=== PATIENT | male | born 1980 | race Asian ===

== ENCOUNTER 2022-06-18 08:22 | Outpatient (CLI) | payer BC, SELFPAY ==
--- NOTE | ~2022-06-18 | XR_ITS ---
EXAMINATION: XR chest 2V 06/18/2022 09:15 INDICATION: 20 year tobacco use history. Cough. Shortness of breath. PROCEDURE: Two-view chest COMPARISON: No prior studies for comparison. FINDINGS: The lungs are clear. The cardiomediastinal silhouette is within normal limits. There are no pleural effusions. There is no pneumothorax suspected. IMPRESSION: 1: NO ACUTE CARDIOPULMONARY DISEASE. Reviewed, dictated and finalized at location D. [employer]OPER
[2022-06-18 09:17] LABS: Hematocrit 48.3 % (42.0-52.0); Mean Corpuscular HGB Conc 33.1 g/dl (32-36); Mean Corpuscular Hemoglobin 31.8 pg (26-34); Mean Platelet Volume 8.4 fl (7.4-10.4); Platelet Count Result 234 k/mm3 (150-375); Red Blood Count 5.03 M/mm3 (4.6-6.20); Red Cell Distribution Width 12.9 % (11.5-14.5)
[2022-06-18 09:28] LABS: Alanine Aminotransferase 22 U/L (6-50); Alkaline Phosphatase 59 U/L (38-126); Anion Gap 4 mmol/L (8-16); Aspartate Amino Transferase 23 U/L (17-59); Bilirubin,Total 0.7 mg/dL (0.2-1.3); Blood Urea Nitrogen 19 mg/dL (9-20); Carbon Dioxide 30 mmol/L (22-30); Chloride 105 mmol/L (98-107); Cholesterol 209 mg/dL (0-200); Estimated Glomerular Filt Rate > 60; Glucose 138 mg/dL (65-110); HDL Direct 51 mg/dL; Phosphorus 3.6 mg/dL (2.5-4.5); Potassium 4.1 mmol/L (3.4-5.0); Sodium 139 mmol/L (137-145); Triglycerides 128 mg/dL (<150)
[2022-06-18 09:39] LABS: LDL Cholesterol Direct 127 mg/dL
[2022-06-18 10:20] LABS: Creatinine Urine 264.8 mg/dL
[2022-06-18 10:24] LABS: MALB Creatinine Ratio 5.5 mg/g (0-30); Microalbumin Urine Random 14.5 mg/L (0-16.7)
[2022-06-18 13:58] LABS: Hemoglobin A1C 6.4 % (<5.7)
== END 2022-06-18 08:23 | disposition home or self-care (01) ==
PROVIDERS: Visit Provider Emergency Medicine
DX: Z00.01 Encounter for general adult medical examination with abnormal findings (principal); B19.10 Unspecified viral hepatitis B without hepatic coma; E78.2 Mixed hyperlipidemia; E88.81 Metabolic syndrome and other insulin resistance; J30.1 Allergic rhinitis due to pollen; Z87.891 Personal history of nicotine dependence
CPT/HCPCS: 36415; 71046; 80061; 80069; 80076; 82043; 83036; 84443; 85027